=== PATIENT | male | born 1960 | race Caucasian/White ===

== ENCOUNTER 2018-09-09 20:39 | Emergency (ER) | payer OTHER, SELFPAY ==
[2018-09-09 20:39] VITALS: BP 148/86; PULSE 82; RESP 15; TEMP 36.8; BMI 34.7
--- NOTE | 2018-09-09 20:45 | ED.RN ---
CALLED FOR EKG PER RN REQUEST, NO OLD EKGS IN MUSE
--- NOTE | 2018-09-09 21:00 | EKG12_ITS ---
Test Reason : CP Blood Pressure : / mmHG Vent. Rate : 083 BPM Atrial Rate : 083 BPM P-R Int : 156 ms QRS Dur : 104 ms QT Int : 374 ms P-R-T Axes : 036 051 044 degrees QTc Int : 439 ms Normal sinus rhythm Normal ECG Confirmed by DONN PAL MD ([id number]), pictures editor RONNIE MEEHAN ([id number]) on 09/12/2018 9:08:29 AM Referred By: JESUS/TAZ Confirmed By:DONN PAL MD
[2018-09-09 21:02] VITALS: O2SAT 100
--- NOTE | 2018-09-09 21:05 | RAD_ITS ---
STUDY: X-RAY CHEST REASON FOR EXAM: Male, 58 years old. Buzzing sensation TECHNIQUE: AP COMPARISON: None. FINDINGS: EKG leads project over the chest. The lungs are clear and expanded. There is no demonstrated pleural abnormality. Normal size heart. Normal mediastinum and cara. Normal visualized pulmonary arteries. There is atherosclerotic tortuosity of the aortic arch and descending thoracic aorta. Normal visualized thoracic spine. Normal visualized ribs, clavicles, and shoulders. There is no demonstrated abnormality of the visualized soft tissue structures of the upper abdomen. RAD/Chest 1 View (Portable) IMPRESSION: Nonacute portable x-ray examination of the chest. Electronically Signed: Tanner Browne MD at 21:30 EST , Service support ,
[2018-09-09] MEDS: 0.9% Normal Saline 1,000 ML 150 ML IV (21:10)
[2018-09-09] MEDS: Aspirin 81 MG TAB.CHEW 324 MG PO (21:10)
[2018-09-09 21:45] LABS: Absolute Lymphocyte Count 1.94 X10^3/ul (0.83-4.51); Absolute Neutrophil Count 3.6 X10^3/uL (2.0-7.7); Basophil# 0.02 X10^3/uL; Basophil% 0.3 % (0-1); Eosinophil# 0.07 X10^3/uL; Eosinophils% 1.1 % (0-5); Hematocrit 46.4 % (40-54); Hemoglobin 15.6 g/dl (13.0-16.5); Lymphocyte # 1.94 X10^3/ul (4.0); Lymphocyte % 31.2 % (19-41); Mean Corp Hgb Conc 33.6 g/gl (32-36); Mean Corpuscular Hgb 29.9 pg (27.0-32.0); Mean Corpuscular Volume 88.9 fL (80-94); Mean Platelet Vol. 9.6 fl (6.2-12.0); Monocyte% 9.7 % (0-10); Neutrophil # 3.56 X10^3/uL (2.7-7.7); Neutrophil % 57.4 % (47-70); POSITIVE COUNT NO; POSITIVE DIFFERENTIAL NO; POSITIVE MORPHOLOGY NO; Platelet Count 211 K/mm3 (150-450); RBC Distribution Width CV 13.2 % (11.6-14.6); RBC Distribution Width SD 42.7 fl (35.1-43.9); Red Blood Count 5.22 M/mm3 (4.6-6.2); White Blood Count 6.2 K/mm3 (4.4-11.0)
[2018-09-09 21:55] LABS: Anion Gap 9 (5-15); BUN 22 mg/dL (7-18); BUN/Creat Ratio 19.3 RATIO (10-20); Calcium,Total 8.6 mg/dL (8.5-10.1); Chloride 106 mmol/L (98-107); Creatinine, Serum 1.14 mg/dL (0.70-1.30); EST Glomerular Filtration Rate 70 mL/min (>60); Est Glom Filt Rate - Afr Amer 84 mL/min (>60); Estimated Creatinine Clearance 69.77 ml/min; Glucose 119 mg/dL (74-106); Potassium 3.7 mmol/L (3.5-5.1); Sodium Level 141 mmol/L (136-145)
--- NOTE | 2018-09-09 22:07 | ED.VISSUMM ---
- ER Visit Summary Date of Service: 09/09/18 Chief Complaint: Chest pain History of Present Illness: The patient is a 58 M he has had intermittent buzzing in his left chest for the past 2 weeks. Patient denies any specific precipitating factor. He states it almost feels as if a cell phone is vibrating in his chest. He does not feel palpitations. He does not get short of breath with it. Past history significant for hypertension and high cholesterol. He believes he had a heart cath approximately 10 years ago. Physical Examination: Vital signs are unremarkable. Patient sitting upright in bed no acute distress. Head neck examination unremarkable. Heart is regular rate and rhythm. Lung sounds are clear. Chest wall is nontender. Abdomen is soft and nontender. Test Results: EKG is sinus 83 with no sign of acute ischemia. Portable chest x-ray is unremarkable. CBC and chemistry studies normal. Troponin is negative. Emergency Department Course and Treatment: Patient received aspirin per protocol. On repeat evaluation patient is resting comfortably and states symptoms have seemed to improve. Test results are discussed with patient and . He will follow-up with either his primary care physician or Dr. Jacob whom he has seen in the past. Treatment Plan: [] Disposition: Discharge Impression: Atypical chest pain This note was generated with [employer] dictation software. It may contain incorrect words, spelling, and punctuation that were not noted in review of the chart prior to signing ED Disposition - Plan for ED Patient: Chief Complaint: Chest Other Referrals: Joel Kraft MD [Primary Care Provider] -
--- NOTE | 2018-09-09 22:09 | ED.DEP ---
ED Disposition - Plan for ED Patient: Disposition: Home or Assisted Living Chief Complaint: Chest Other Instructions: ED Chest Pain Atypical Unkn Cause Referrals: Joel Kraft MD [Primary Care Provider] - Charli Jacob MD [STAFF PHYSICIAN] -
[2018-09-09 22:14] VITALS: BP 127/84; PULSE 72; RESP 19; O2SAT 98
== END 2018-09-09 22:15 | disposition home or self-care (01) ==
PROVIDERS: Emergency Provider Emergency Medicine; Family Provider Family Medicine; PCP Family Medicine
DX: R07.89 Other chest pain (principal); I10 Essential (primary) hypertension; E78.00 Pure hypercholesterolemia, unspecified
CPT/HCPCS: 71045; 80048; 84484; 85025; 93005; 96360; 99285; J7030; A4216

== ENCOUNTER 2021-09-10 10:56 | Outpatient (CLI) | payer OTHER, SELFPAY | END 2021-09-10 23:59 | disposition short-term general hospital (02) | LOC: LABSPEC 10:57 | PROVIDERS: PCP Family Medicine; Referring Provider Physician Assistant; Visit Provider Physician Assistant | DX: U07.1 COVID-19 (principal) | CPT/HCPCS: 87635; U0003; U0005 ==